=== PATIENT | female | born 1975 | race Caucasian/White ===

== ENCOUNTER 2017-12-19 09:35 | Emergency (ER) | payer MEDICAID ==
--- NOTE | 2017-12-19 09:59 | ED Physician Chart ---
ED Chief Complaint/HPI - Patient Information Date Seen:: 12/19/17 Time Seen:: 09:56 Chief Complaint:: Fever, chills, headache, body ache History of Present Illness:: 42 yo female developed fever, chills, headache, body ache and cough for 2 days. She also had sore throat and left ear pain. Allergies:: Allergies Allergy/AdvReac Type Severity Reaction Status Date / Time MDX No Known Allergies - Nka Allergy Unverified 12/07/12 19:36 [No Known Allergies - Nka] ED Review of Systems - Review of Systems General/Constitutional: Fever, Chills Skin: No rash Head: Headache Eyes: No pain ENT: Earache Neck: No neck pain Cardio Vascular: No chest pain Pulmonary: No SOB, Cough GI: No nausea Musculoskeletal: No bone or joint pain ED Past Medical History - Past Medical History Past Medical History: Other (, headache) Social History: Non Smoker, No Alcohol, No Drug Use Surgical History: None ED Physical Exam - Physical Examination General/Constitutional: Awake Head: Atraumatic Eyes: PERRL Skin: No skin lesions ENMT: Nasal exam nl Neck: No nuchal rigidity Other Respiratory comments:: mild rhonchi Cardio Vascular: RRR, No murmur, gallop, rubs, NL S1 S2 GI: No tenderness/rebounding/guarding Extremities: normal strength in all extremities Neuro/Psych: No focal deficits ED Labs/Radiology/EKG Results - Radiology Results Results: CXR: no acute consolidation ED Assessment - Assessment General Assessment: Bronchitis Migraine headache Leukopenia Assessment/Comments:: CBC, CMP, UA CXR, EKG Rocephin NS 1L IV bolus Tylenol Robitussin Reglan Toradol Imitrex 6mg SQ D/c home Imitrex 50mg po prn F/u PCP or return to ER if symptoms worsen ED Septic Shock - . Is Septic Shock (SBP<90, OR Lactate>4 mmol\L) present?: No ED Reassessment (Disposition) - Reassessment Reassessment Condition:: Improved - Patient Disposition Discharge/Transfer:: Home ED Discharge Plan - Patient Disposition Admit/Discharge/Transfer: PT DISCHARGED HOME Condition at Disposition: Improved Prescriptions: SUMAtriptan Succinate [Imitrex] 50 mg PO Q2H PRN #9 tab PRN Reason: Headache Instructions: Nausea, Adult, Influenza, Adult, [id number]
[2017-12-19] MEDS ORDERED: Guaifenesin DM 10 ML UDC PO ONE ×2 (10:10)
[2017-12-19 10:21] LABS: % EOSINOPHILS 0.1 % (0.0-5.0); % LYMPHOCYTES 14.6 % (20.0-50.0); % MONOCYTES 7.1 % (2.0-10.0); % NEUTROPHILS 78.2 % (40.0-80.0); HEMATOCRIT 34.8 % (41.0-60); HEMOGLOBIN 11.9 gm/dL (12-16); LYMPHOCYTE ABSOLUTE 0.6 Th/cmm (1.5-3.0); MEAN CORPUSCULAR HEMOGLOBIN 30.4 pg (27.0-31.0); MEAN CORPUSCULAR HGB CONC 34.2 pg (28.0-36.0); MEAN PLATELET VOLUME 7.5 fl; MONOCYTE ABSOLUTE 0.3 Th/cmm (0.3-1.0); NEUTROPHILE ABSOLUTE 2.9 Th/cmm (1.8-8.0); PLATELET COUNT 279 Th/cmm (150-400); RED BLOOD COUNT 3.91 Mil/cmm (3.80-5.10); RED CELL DISTRIBUTION WIDTH 12.9 % (11.5-20.0)
[2017-12-19 10:42] LABS: ALB/GLOB RATIO 1.6 (1.0-1.8); ALBUMIN 4.3 gm/dL (3.7-5.3); ALKALINE PHOSPHATASE 40 U/L (34-104); ANION GAP 10.5 (7.0-16.0); BILIRUBIN,TOTAL 0.3 mg/dL (0.3-1.0); BUN - UREA NITROGEN 3 mg/dL (7-25); CALCIUM SERUM 8.3 mg/dL (8.6-10.3); CARBON DIOXIDE 22.5 mEq/L (21.0-31.0); CHLORIDE 106 mEq/L (98-107); CREATININE - SERUM 0.6 mg/dL (0.6-1.2); GFR AFRICAN-AMERICAN > 60.0 ml/min (>90); GFR NON AFRICAN-AMERICAN > 60.0 ml/min; GLUCOSE 123 mg/dL (70-105); SGOT 17 U/L (13-39); SGPT/ALT 15 U/L (7-52); SODIUM SERUM 135 mEq/L (136-145)
[2017-12-19 10:46] LABS: WHITE BLOOD COUNT 3.8 Th/cmm (4.8-10.8)
[2017-12-19] MEDS ORDERED: cefTRIAXone 1 GM in Sodium Chloride 0.9% 50 ML IV ONE ×2 (11:20→11:48)
[2017-12-19] MEDS ORDERED: Sodium Chloride 0.9% 1,000 ML IV ONE ×2 (11:21)
[2017-12-19] MEDS ORDERED: Albuterol/Ipratropium Neb 3 ML AERS HHN ONE (11:30)
[2017-12-19] MEDS ORDERED: Ipratropium Neb 0.5 mg/2.5 mL UD HHN STA (11:31)
--- NOTE | 2017-12-19 11:38 | Diagnostic Imaging Report ---
Portable chest x-ray Time: 1104 History: Cough Allowing for portable technique the heart size is normal. No focal pulmonary parenchymal processes. No hilar or mediastinal abnormalities. Impression: No acute abnormalities.
[2017-12-19] MEDS ORDERED: Ipratropium Neb 0.5 mg/2.5 mL UD HHN ONE (11:53)
[2017-12-19 12:24] LABS: URINE MICROSCOPIC INDICATED? YES; URINE SOURCE RANDOM
[2017-12-19 12:30] LABS: URINE BILIRUBIN NEGATIVE (NEGATIVE); URINE BLOOD MODERATE (NEGATIVE); URINE GLUCOSE (UA) NEGATIVE (NEGATIVE); URINE KETONE NEGATIVE (NEGATIVE); URINE LEUKOCYTE ESTERASE NEGATIVE (NEGATIVE); URINE NITRATE NEGATIVE (NEGATIVE); URINE PH 5.5 (4.6 - 8.0); URINE PROTEIN NEGATIVE (NEGATIVE); URINE UROBILINOGEN 0.2 E.U./dL (0.2 - 1.0)
[2017-12-19 12:45] LABS: URINE CLARITY HAZY (CLEAR); URINE COLOR YELLOW
[2017-12-19 12:57] LABS: URINE BACTERIA FEW /hpf (NONE SEEN); URINE EPITHELIAL CELLS OCCASIONAL /lpf (FEW); URINE RBC 0-2 /hpf (0-5); URINE WBC 0-2 /hpf (0-5)
[2017-12-19] MEDS ORDERED: Metoclopramide 5 mg/mL 2mL Vial IVP STA (15:04)
== END 2017-12-19 16:35 | disposition home or self-care (01) ==
LOC: ER 09:35
DX: J40 Bronchitis, not specified as acute or chronic (principal)
CPT/HCPCS: 99285; 94640 ×2; 93005; 71045; 36415; 83605; 85025; 87086; 81001; 80053; 87040 ×2; J3030; J1885; J0696; 90779; J7030; Z7610